=== PATIENT | female | born 1955 | race African-American/Black ===

== ENCOUNTER 2021-03-01 07:21 | Day surgery (SDC) | payer BC ==
[2021-02-25 10:03] VITALS: BMI 44.2
[2021-03-01] MEDS: PHENYLEPHRINE 2.5% OPHTH SOLN 15 ML BOTTLE ONE ×3 (08:00→08:10)
[2021-03-01] MEDS: CIPROFLOXACIN 0.3% EYE DROPS 5 ML BOTTLE ONE ×3 (08:00→08:10)
[2021-03-01] MEDS: CYCLOPENTOLATE 2% OPHTH SOLN 2 ML BOTTLE ONE ×3 (08:00→08:10)
[2021-03-01] MEDS: TROPICAMIDE 1% OPHTH SOLN 15 ML BOTTLE ONE ×3 (08:00→08:10)
[2021-03-01] MEDS ORDERED: MIDAZOLAM HCL 2 MG/2 ML SINGLE DOSE VIAL ONE (09:16)
[2021-03-01] MEDS ORDERED: ONDANSETRON 4 MG/2 ML VIAL ONE (09:17)
[2021-03-01] MEDS ORDERED: TETRACAINE 0.5% OPHTH SOLN 2 ML BOTTLE ONE (09:30)
[2021-03-01] MEDS ORDERED: LIDOCAINE 1% P/F 10 MG/ML VIAL ONE (09:30)
[2021-03-01] MEDS ORDERED: BSS (NA/CA/MG/K) BALANCED SALT SOLUTION OPHTH SOLN 15 ML BOTTLE ONE (09:30)
[2021-03-01] MEDS ORDERED: CARBACHOL 0.01% INTRA-OCULAR 1.5 ML VIAL ONE (09:31)
[2021-03-01] MEDS ORDERED: NEO/POLYMYX B SULF/DEXAMETH OPHTHALMIC 5ML BOTTLE ONE (09:31)
[2021-03-01 10:29] VITALS: PULSE 78; TEMP 98.4
[2021-03-01 11:07] VITALS: BP 144/80
== END 2021-03-01 11:15 | disposition home or self-care (01) ==
LOC: FASU 07:21
PROVIDERS: ATTEND Ophthalmology
PROC: 08RJ3JZ Replacement of Right Lens with Synthetic Substitute, Percutaneous Approach (ICD-10-PCS; principal; 2021-03-01 09:50)
DX: H26.8 Other specified cataract (principal)

== ENCOUNTER 2021-04-28 07:06 | Day surgery (SDC) | payer BC ==
[2021-04-23 14:37] VITALS: BMI 44.2
[2021-04-28 09:13] VITALS: TEMP 98.1
[2021-04-28 11:46] VITALS: BP 142/60; PULSE 66
== END 2021-04-28 10:00 | disposition home or self-care (01) ==
LOC: FASU 07:06
PROVIDERS: ATTEND Ophthalmology
PROC: 08RK3JZ Replacement of Left Lens with Synthetic Substitute, Percutaneous Approach (ICD-10-PCS; principal; 2021-04-28)
DX: H26.8 Other specified cataract (principal)